=== PATIENT | male | born 1990 | race Caucasian/White ===

== ENCOUNTER 2016-11-01 15:36 | Emergency (ER) | payer MEDICAID ==
[2016-11-01 15:52] VITALS: BP 126/74
[2016-11-01] MEDS ORDERED: Aspirin Low Dose CHEW TAB* 81 MG PO ONE (16:34)
--- NOTE | 2016-11-01 17:04 | UC ---
Steven Sapp Benjamin, scribed for Beth Morgan MD on 11/01/16 at 1601 . Cardiac HPI - HPI Summary HPI Summary: 26yo male c/o SOB usually at night for a while. Today, pt started having sudden onset of mild aching chest pain around 1400 at rest. Pain is constant and it radiates to left neck and shoulder. Pt admits that CP and SOB are still present now rates it a 5. Pt reports having chest heaviness before without a dx. Pt denies wheezing in lungs, pain or swelling in legs, however, admits hx of frequent heart burn in past. States this does not feel like heart burn. Reports runny nose, but denies any other URI symptoms. Pt is a current smoker that admits is in the process of trying to quit. FHx includes OK, DM, and CVA. - History of Current Complaint Chief Complaint: UCChestPain Stated Complaint: CHEST PAIN, AND SHORTNESS OF BREATH Time Seen by Provider: 11/01/16 15:43 Hx Obtained From: Patient, Family/Molding Machine Operator - mother is with pt Onset/Duration: Sudden Onset - at rest, Lasting Hours, Still Present Timing: Constant Initial Severity: Mild Current Severity: Mild Pain Intensity: 5 Chest Pain Location: Mid Sternal Character: Dull/Aching - aching Aggravating: Nothing Alleviating: Nothing Associated Signs & Symptoms: Positive: Chest Pain, SOB. Negative: Fever, Diaphoresis, Cough, Calf Pain/Swelling - Risk Factors Pulmonary Embolism Risk Factors: Smoking Cardiac Risk Factors: Smoking, Family History TAD Risk Factors: Smoking AMI/ACS Risk Factors: Smoking - Allergy/Home Medications Allergies/Adverse Reactions: Allergies Allergy/AdvReac Type Severity Reaction Status Date / Time Penicillins Allergy Intermediate hives/rash Verified 11/01/16 15:47 Home Medications: Home Medications Ibuprofen TAB* [Motrin TAB* 600 MG] 500 mg PO Q8H PRN 11/01/16 [History Confirmed 11/01/16] PMH/Surg Hx/FS Hx/Imm Hx Previously Healthy: Yes GI/ History: Gastroesophageal Reflux - Surgical History Surgical History: None - Family History Known Family History: Positive: Cardiac Disease - [place], Hypertension, Diabetes, Other - CVA - Social History Occupation: Unemployed Lives: With Family - with mother Alcohol Use: None Substance Use Type: None Smoking Status (MU): Light Every Day Tobacco Smoker Type: Cigarettes Amount Used/How Often: 1 pack/ 3 days Review of Systems Constitutional: Negative Skin: Negative Eyes: Negative ENT: Nasal Discharge Respiratory: Shortness Of Breath Cardiovascular: Chest Pain - radiates to left shouler and neck Gastrointestinal: Negative Genitourinary: Negative Motor: Negative Neurovascular: Negative Musculoskeletal: Negative Neurological: Negative Psychological: Negative All Other Systems Reviewed And Are Negative: Yes Physical Exam Triage Information Reviewed: Yes Appearance: Well-Appearing, Well-Nourished, Pain Distress Vital Signs: Initial Vital Signs Temp 98.2 F 11/01/16 15:46 Pulse 64 11/01/16 15:46 Resp 16 11/01/16 15:46 BP 126/74 11/01/16 15:46 Pulse Ox 98 11/01/16 15:46 Vital Signs Reviewed: Yes Eyes: Positive: Conjunctiva Clear ENT: Positive: Normal ENT inspection, Pharynx normal, TMs normal. Negative: Muffled/hoarse voice Neck: Positive: Supple, Nontender, No Lymphadenopathy Respiratory: Positive: Lungs clear, Normal breath sounds, No respiratory distress. Negative: Wheezing Cardiovascular: Positive: RRR, No Murmur, Pulses Normal, Other: - CP is not reproducible. Abdomen Description: Positive: Nontender, No Organomegaly, Soft. Negative: Distended, Guarding, Hepatomegaly, McBurney's Point Tenderness, Peritoneal Signs , Pulsatile Mass, Splenomegaly Bowel Sounds: Positive: Present, Other: Musculoskeletal: Positive: Strength Intact, ROM Intact, Other: - no calf tenderness Neurological: Positive: Alert, Muscle Tone Normal Psychological Exam: Normal Psychological: Positive: Age Appropriate Behavior Skin Exam: Normal Diagnostics - EKG Cardiac Rate: NL - 70bpm Cardiac Rhythm: Sinus: Normal - EKG taken at 1536. Sinus Rhthym.Early repolarization, normal axis, normal IV conductions, short LA intervals 109. - Assessment/Plan Course Of Treatment: Pt with chest pain, SOB and abnormalities on EKG, smoker and family hx. No obvious etiology by hx or physical exam, since lungs are clear , pain is not reproducible, and pain does not feel like his GERD. Will have pt go to ED for further evaluation. Advised ambulance, pt declines, mother witnesses. Mother will drive pt by private car. ASA 324mg given. Allergies noted. - Differential Diagnoses - Chest Pain Differential Diagnosis/HQI/PQRI: Acute OK, Angina, Chest Wall, GI Disease, Lower Respiratory Infection, Pulmonary Embolism - Clinical Impression Provider Diagnoses: chest pain. dyspnea - Physician Notifications Discussed Patient Care With: Dr. Hobbs (Emergency Medicine) at 1630. Discharge - Discharge Plan Condition: Stable Disposition: AGAINST MEDICAL ADVICE Discharge Disposition Comment: pt going by private car with his mother driving to [facility] [place] Referrals: No Primary Care Phys,NOPCP [Primary Care Provider] - The documentation as recorded by the Steven katz Benjamin accurately reflects the service I personally performed and the decisions made by me, Beth Morgan MD.
== END 2016-11-01 16:40 | disposition left against medical advice (07) ==
LOC: UCEAST 15:36
DX: R07.89 Other chest pain (principal); R06.02 Shortness of breath; K21.9 Gastro-esophageal reflux disease without esophagitis; Z88.0 Allergy status to penicillin; F17.210 Nicotine dependence, cigarettes, uncomplicated
CPT/HCPCS: 93005; 99212; A9270-GY; G0463

== ENCOUNTER 2016-11-01 17:24 | Emergency (ER) | payer MEDICAID ==
[2016-11-01 17:46] VITALS: BP 123/73
[2016-11-01 18:10] LABS: Hematocrit 47 % (42-52); Hemoglobin 15.6 g/dl (14.0-18.0); Mean Corpuscular HGB Conc 33 g/dl (31-36); Mean Corpuscular Hemoglobin 29 pg (27-31); Mean Corpuscular Volume 86 fL (80-94); Mean Platelet Volume 9 um3 (7.4-10.4); Red Blood Count 5.44 10^6/ul (4.0-5.4); Red Cell Distribution Width 14 % (10.5-15); White Blood Count 9.9 10^3/ul (3.5-10.8)
--- NOTE | 2016-11-01 18:11 | RAD ---
INDICATION: Shortness of breath. COMPARISON: None TECHNIQUE: PA and lateral views of the chest were obtained. FINDINGS: The heart and mediastinum are normal in size and contour. The lungs are grossly clear. There is no evidence of large pleural effusion. Visualized bones are normal for the patient's age. There is no radiographic evidence of free air beneath the diaphragm IMPRESSION: No radiographic evidence of acute cardiopulmonary disease.
[2016-11-01 18:26] LABS: Albumin 4.6 g/dL (3.2-5.2); BUN/Creatinine Ratio 18.3 (8-20); Calcium 9.4 mg/dL (8.6-10.3); EGFR African American 144.9 (>60); EGFR Non-African American 112.7 (>60); Globulin 3.2 g/dL (2-4); Potassium 3.7 mmol/L (3.5-5.0); Total Bilirubin 0.8 mg/dL (0.2-1.0); Total Protein 7.8 g/dL (6.4-8.9)
[2016-11-01] MEDS ORDERED: Ketorolac INJ* 30 MG/ML 1 ML VIAL IM ONE (18:26)
[2016-11-01 18:58] LABS: C Reactive Protein 1.04 mg/L (< 5.00)
--- NOTE | 2016-11-01 19:00 | ED ---
Rico Sapp SooYoung, scribed for Moreno Hobbs MD on 11/01/16 at 1752 . HPI Chest Pain - HPI Summary HPI Summary: A 26 y/o M sent from [facility] [place] to ED with c/o mid-sternal CP onset approx 1430. Pt was at rest, sitting as passenger in a car when he began developing a constant CP described as an ache and rated as a 5 out of 10 pain. Pain is still present in ED. Associated sx: SOB. Denies wheezing, n/v, cough, lightheadedness. Deep breaths does not aggravate the pain. Pert FHx: grandfather had [place] at 49. Denies PMHx, does not take daily medication. Pt is a smoker, but does not drink or use recreational drugs. - History of Current Complaint Chief Complaint: EDChestPainROMI Time Seen by Provider: 11/01/16 17:41 Hx Obtained From: Patient, Family/Director Of Music Therapy - mother present Onset/Duration: Started Hours Ago, Still Present Time of Onset: 14:30 Timing: Constant Initial Severity: Moderate Current Severity: Moderate Pain Intensity: 5 Pain Scale Used: 0-10 Numeric Chest Pain Location: Mid Sternal Character: Dull/Aching Associated Signs and Symptoms: Positive: Shortness of Breath. Negative: Lightheadedness, Nausea, Cough, Vomiting, Wheezing - Allergy/Home Medications Allergies/Adverse Reactions: Allergies Allergy/AdvReac Type Severity Reaction Status Date / Time Penicillins Allergy Intermediate hives/rash Verified 11/01/16 15:47 PMH/Surg Hx/FS Hx/Imm Hx Previously Healthy: Yes Sensory History: Denies: Hx Legally Blind Infectious Disease History: No Infectious Disease History: Denies: Traveled Outside the [place] in Last 30 Days - Family History Known Family History: Positive: Cardiac Disease - [place], grandfather [place] at 29, Hypertension, Diabetes, Other - CVA - Social History Occupation: Unemployed Lives: With Family Alcohol Use: None Hx Substance Use: No Substance Use Type: Reports: None Hx Tobacco Use: Yes Smoking Status (MU): Light Every Day Tobacco Smoker Type: Cigarettes Amount Used/How Often: 1 pack/ 3 days Review of Systems Positive: Chest Pain Positive: Shortness Of Breath, Other - neg: wheezing. Negative: Cough Negative: Vomiting, Nausea Neurological: Other - neg: lightheadedness All Other Systems Reviewed And Are Negative: Yes Physical Exam - Summary Physical Exam Summary: VITAL SIGNS: Reviewed. GENERAL: Patient is a well-developed and nourished MALE who is lying comfortable in the stretcher. Patient is not in any acute respiratory distress. HEAD AND FACE: No signs of trauma. No ecchymosis, hematomas or skull depressions. No sinus tenderness. EYES: PERRLA, EOMI x 2, No injected conjunctiva, no nystagmus. EARS: Hearing grossly intact. Ear canals and tympanic membranes are within normal limits. MOUTH: Oropharynx within normal limits. NECK: Supple, trachea is midline, no adenopathy, no JVD, no carotid bruit, no c- spine tenderness, neck with full ROM. CHEST: Symmetric, no tenderness at palpation LUNGS: Clear to auscultation bilaterally. No wheezing or crackles. CVS: Regular rate and rhythm, S1 and S2 present, no murmurs or gallops appreciated. ABDOMEN: Soft, non-tender. No signs of distention. No rebound, no guarding, and no masses palpated. Bowel sounds are normal. EXTREMITIES: FROM in all major joints, no edema, no cyanosis or clubbing. NEURO: Alert and oriented x 3. No acute neurological deficits. Speech is normal and follows commands. SKIN: Dry and warm Triage Information Reviewed: Yes Vital Signs On Initial Exam: Initial Vitals Temp Pulse Resp BP Pulse Ox 98.0 F 87 16 140/70 100 11/01/16 17:27 11/01/16 17:27 11/01/16 17:27 11/01/16 17:27 11/01/16 17:27 Vital Signs Reviewed: Yes - Nay Coma Scale Coma Scale Total: 15 Diagnostics - Vital Signs Vital Signs Temp Pulse Resp BP Pulse Ox 11/01/16 17:40 75 17 97 11/01/16 17:39 123/73 11/01/16 17:27 98.0 F 80 16 140/70 100 - Laboratory Lab Results: Lab Results 11/01/16 11/01/16 11/01/16 Range/Units 17:54 17:54 17:54 WBC 9.9 (3.5-10.8) 10^3/ul RBC 5.44 H (4.0-5.4) 10^6/ul Hgb 15.6 (14.0-18.0) g/dl Hct 47 (42-52) % MCV 86 (80-94) fL MCH 29 (27-31) pg MCHC 33 (31-36) g/dl RDW 14 (10.5-15) % Plt Count 257 (150-450) 10^3/ul MPV 9 (7.4-10.4) um3 Neut % (Auto) 56.4 (38-83) % Lymph % (Auto) 33.2 (25-47) % [place] % (Auto) 6.1 (1-9) % Eos % (Auto) 3.9 (0-6) % Baso % (Auto) 0.4 (0-2) % Absolute Neuts (auto) 5.6 (1.5-7.7) 10^3/ul Absolute Lymphs (auto) 3.3 (1.0-4.8) 10^3/ul Absolute Monos (auto) 0.6 (0-0.8) 10^3/ul Absolute Eos (auto) 0.4 (0-0.6) 10^3/ul Absolute Basos (auto) 0 (0-0.2) 10^3/ul Absolute Nucleated RBC 0.01 10^3/ul Nucleated RBC % 0.1 D-Dimer, Quantitative < 200 (Less Than 230) ng/mL Sodium 136 (133-145) mmol/L Potassium 3.7 (3.5-5.0) mmol/L Chloride 103 (101-111) mmol/L Carbon Dioxide 26 (22-32) mmol/L Anion Gap 7 (2-11) mmol/L BUN 15 (6-24) mg/dL Creatinine 0.82 (0.67-1.17) mg/dL Est GFR ( Amer) 144.9 (>60) Est GFR (Non-Af Amer) 112.7 (>60) BUN/Creatinine Ratio 18.3 (8-20) Glucose 109 H (70-100) mg/dL Lactic Acid (0.5-2.0) mmol/L Calcium 9.4 (8.6-10.3) mg/dL Total Bilirubin 0.80 (0.2-1.0) mg/dL AST 15 (13-39) U/L ALT 14 (7-52) U/L Alkaline Phosphatase 78 (34-104) U/L Total Creatine Kinase 89 (10-223) U/L CK-MB (CK-2) 1.3 (0.6-6.3) ng/mL Troponin I 0.00 (<0.04) ng/mL B-Natriuretic Peptide ( - 100) pg/mL Total Protein 7.8 (6.4-8.9) g/dL Albumin 4.6 (3.2-5.2) g/dL Globulin 3.2 (2-4) g/dL Albumin/Globulin Ratio 1.4 (1-3) TSH Pending Thyroxine (T4) Pending 11/01/16 11/01/16 Range/Units 17:54 17:54 WBC (3.5-10.8) 10^3/ul RBC (4.0-5.4) 10^6/ul Hgb (14.0-18.0) g/dl Hct (42-52) % MCV (80-94) fL MCH (27-31) pg MCHC (31-36) g/dl RDW (10.5-15) % Plt Count (150-450) 10^3/ul MPV (7.4-10.4) um3 Neut % (Auto) (38-83) % Lymph % (Auto) (25-47) % [place] % (Auto) (1-9) % Eos % (Auto) (0-6) % Baso % (Auto) (0-2) % Absolute Neuts (auto) (1.5-7.7) 10^3/ul Absolute Lymphs (auto) (1.0-4.8) 10^3/ul Absolute Monos (auto) (0-0.8) 10^3/ul Absolute Eos (auto) (0-0.6) 10^3/ul Absolute Basos (auto) (0-0.2) 10^3/ul Absolute Nucleated RBC 10^3/ul Nucleated RBC % D-Dimer, Quantitative (Less Than 230) ng/mL Sodium (133-145) mmol/L Potassium (3.5-5.0) mmol/L Chloride (101-111) mmol/L Carbon Dioxide (22-32) mmol/L Anion Gap (2-11) mmol/L BUN (6-24) mg/dL Creatinine (0.67-1.17) mg/dL Est GFR ( Amer) (>60) Est GFR (Non-Af Amer) (>60) BUN/Creatinine Ratio (8-20) Glucose (70-100) mg/dL Lactic Acid 1.0 (0.5-2.0) mmol/L Calcium (8.6-10.3) mg/dL Total Bilirubin (0.2-1.0) mg/dL AST (13-39) U/L ALT (7-52) U/L Alkaline Phosphatase (34-104) U/L Total Creatine Kinase (10-223) U/L CK-MB (CK-2) (0.6-6.3) ng/mL Troponin I (<0.04) ng/mL B-Natriuretic Peptide 19 ( - 100) pg/mL Total Protein (6.4-8.9) g/dL Albumin (3.2-5.2) g/dL Globulin (2-4) g/dL Albumin/Globulin Ratio (1-3) TSH Thyroxine (T4) Result Diagrams: 11/01/16 17:54 11/01/16 17:54 Lab Statement: Any lab studies that have been ordered have been reviewed, and results considered in the medical decision making process. - Radiology CXR Xray Interpretation: No Acute Changes - IMPRESSION: No radiographic evidence of acute cardiopulmonary dz Radiology Interpretation Completed By: Radiologist - EKG 1 EKG Rhythm: Sinus Rhythm - 69 bpm EKG Interpretation: early repolarization in V2-V5 Chest Pain Course/Dx - Course Assessment/Plan: A 26 y/o M sent from [facility] presents to ED with c/o mid-sternal CP onset approx 1430. Pt was at rest, sitting as passenger in a car when he began developing a constant CP described as an ache and rated as a 5 out of 10 pain. Pain is still present in ED. Associated sx: SOB. Denies wheezing, n/v, cough, lightheadedness. Deep breaths does not aggravate the pain. Pert FHx: grandfather had [place] at 49. Denies PMHx, does not take daily medication. Pt is a smoker, but does not drink or use recreational drugs. In the ED course an IV access was obtained. Patient was placed in a court monitor. Patient was started with IV fluids. He was given Toradol for the CP. Labs within normal limits except for Glucose of 109. Troponin #1: O.00 D dimer is <200 therefore no suspicion for PE. Patient has no comorbidities and troponin is negative, EKG no ST elevation and CP resolved with Toradol therefore I do not believe he is at risk of ACS. EKG shows a NSR at 69 BPM w/o ST elevations. He has early repolarization in the anterior leads. CXR impression: No acute pathology. Hx of IL is his family but at 49 years old. Patient reports that all symptoms have resolved. Because the patient has no significant comorbidities and no family history of cardiovascular disease at his age the patient will be discharged home with follow up of PMD. I discussed all the findings and test results with the patient. Patient was instructed to return to the emergency room immediately if any of the symptoms return or worsens. Patient understands and agrees. Plan of care was discussed with the patient and patient understands and agrees. All questions were answered at patient satisfaction. There were no further complaints or concerns. PE before discharge: CVS: S1 and S2 present. No murmurs appreciated. Abdominal exam before discharge: Soft, non- tender. No signs of distention. No rebound no guarding, and no masses palpated. Bowel sounds are normal. Patient is alert and oriented x 3. Patient is hemodynamically stable. - Chest Pain Differential Diagnosis/HQI/PQRI: Angina, Chest Wall, GI Disease, Lower Respiratory Infection, Pulmonary Edema, Pulmonary Embolism - Diagnoses Provider Diagnoses: Atypical chest pain Discharge - Discharge Plan Condition: Stable Disposition: HOME Patient Education Materials: Chest Pain (ED) Referrals: [facility] PHYSICIAN REFERRAL [Outside] No Primary Care Phys,NOPCP [Primary Care Provider] - Additional Instructions: Please return to ED if you experience new or worsening symptoms. The documentation as recorded by the Rico katz SooYoung accurately reflects the service I personally performed and the decisions made by me, Moreno Hobbs MD.
[2016-11-01 19:18] LABS: T4 8.13 mcg/mL (6.09-12.23)
[2016-11-01 19:20] LABS: TSH (Thyroid Stimulating Horm) 1.56 mcIU/mL (0.34-5.60)
[2016-11-01 19:33] LABS: Erythrocyte Sed Rate 6 mm/Hr (0-14)
== END 2016-11-01 19:08 | disposition home or self-care (01) ==
LOC: ED 17:24
DX: R07.89 Other chest pain (principal); R06.02 Shortness of breath; Z88.0 Allergy status to penicillin; F17.210 Nicotine dependence, cigarettes, uncomplicated
CPT/HCPCS: 36415; 71020; 80053; 82550; 82553; 83605; 83880; 84436; 84443; 84484; 85025; 85379; 85652; 86140; 93005; 99283

== ENCOUNTER 2018-12-28 13:03 | Emergency (ER) | payer MEDICAID ==
[2018-12-28 13:11] VITALS: BP 102/65
--- NOTE | 2018-12-28 13:29 | UC ---
Lower Extremity/Ankle HPI - HPI Summary HPI Summary: 28 yo male had a go kart dropped on left lower ext hit anterior ankle/dorsum of midfoot - History of Current Complaint Chief Complaint: UCLowerExtremity Stated Complaint: FOOT INJURY Time Seen by Provider: 12/28/18 13:04 Hx Obtained From: Patient Onset/Duration: Sudden Onset Severity Initially: Moderate Severity Currently: Moderate Pain Intensity: 5 Pain Scale Used: 0-10 Numeric Aggravating Factor(s): Standing, Ambulation Able to Bear Weight: Yes Feet (Multiple View): 1 - tedner /swollen - Allergies/Home Medications Allergies/Adverse Reactions: Allergies Allergy/AdvReac Type Severity Reaction Status Date / Time Penicillins Allergy Hives Verified 12/28/18 13:04 Home Medications: Home Medications NK [No Home Medications Reported] 12/28/18 [History Confirmed 12/28/18] PMH/Surg Hx/FS Hx/Imm Hx - Additional Past Medical History Additional PMH: Stargardt disease Previously Healthy: Yes - Surgical History Surgical History: None - Family History Known Family History: Positive: Cardiac Disease - [place], grandfather [place] at 29, Hypertension, Diabetes, Other - CVA - Social History Alcohol Use: None Substance Use Type: None Smoking Status (MU): Light Every Day Tobacco Smoker Type: Cigarettes Amount Used/How Often: 1 pack/ 3 days Review of Systems All Other Systems Reviewed And Are Negative: Yes Constitutional: Positive: Negative Skin: Positive: Negative Eyes: Positive: Negative ENT: Positive: Negative Respiratory: Positive: Negative Cardiovascular: Positive: Negative Gastrointestinal: Positive: Negative Genitourinary: Positive: Negative Motor: Positive: Negative Neurovascular: Positive: Negative Musculoskeletal: Positive: Edema Neurological: Positive: Negative Psychological: Positive: Negative Physical Exam Triage Information Reviewed: Yes Appearance: Well-Appearing, No Pain Distress, Well-Nourished Vital Signs: Initial Vital Signs Temp 98.8 F 12/28/18 13:08 Pulse 83 12/28/18 13:08 Resp 17 12/28/18 13:08 BP 102/65 12/28/18 13:08 Pulse Ox 100 12/28/18 13:08 Eye Exam: Normal Eyes: Positive: Conjunctiva Clear ENT: Positive: Hearing grossly normal. Negative: Nasal congestion, Nasal drainage, Tonsillar swelling, Tonsillar exudate, Trismus, Muffled voice, Hoarse voice Neck: Positive: Supple, Nontender, No Lymphadenopathy Respiratory: Positive: Lungs clear, Normal breath sounds, No respiratory distress, No accessory muscle use Cardiovascular: Positive: RRR, No Murmur Musculoskeletal: Positive: ROM Intact, No Edema Neurological: Positive: Alert Psychological Exam: Normal Skin Exam: Normal Diagnostics - Radiology No standard instances Radiology Interpretation Completed By: Radiologist Summary of Radiographic Findings: no fx Lower Extremity Course/Dx - Differential Dx/Diagnosis Provider Diagnosis: Contusion of left foot Discharge - Sign-Out/Discharge Documenting (check all that apply): Patient Departure All imaging exams completed and their final reports reviewed: Yes - Discharge Plan Condition: Stable Disposition: HOME Patient Education Materials: Contusion in Adults (ED) Referrals: No Primary Care Phys,NOPCP [Primary Care Provider] - Additional Instructions: rest elevate ice advil or aleve recheck in 2 weeks if not better - Billing Disposition and Condition Condition: STABLE Disposition: Home
== END 2018-12-28 14:16 | disposition home or self-care (01) ==
LOC: UCEAST 13:03
DX: S90.32XA Contusion of left foot, initial encounter (principal); W22.8XXA Striking against or struck by other objects, initial encounter; Y92.9 Unspecified place or not applicable; Z88.0 Allergy status to penicillin
CPT/HCPCS: 99211; G0463

== ENCOUNTER 2019-07-21 15:29 | Emergency (ER) | payer MEDICAID, OTHER ==
--- OUTSIDE RECORDS SUMMARY | 2019-07-21 15:36 | XMS REPORT ---
:1990 Author Organization [facility] Care Team Providers Name Role Phone Judith Kumari Primary Care Physician Unavailable Allergies, Adverse Reactions, Alerts Allergy Code CodeSystem Reaction Severity Criticality Status Start Substance Date Moderate Medications Medication Medication Medication Start Stop Route Dose Status Fill Code CodeSystem Date Date Instructions RxNorm Relevant diagnostic tests/laboratory data Narrative No Information Procedures Procedure Code CodeSystem Target Date of Status Service Device Device Device Name Site Procedure Delivery Code Name UID Location Group [id number] SNOMED-CT () 2018-09-30 complete Mental psychotherap [facility] (other [place] than of a [address]) [place], [place], [id number] Group [id number] SNOMED-CT () 2018-10-07 complete Mental psychotherap [facility] (other [place] than of a [address] group) [place], [place], [id number] Group [id number] SNOMED-CT () 2018-09-16 complete Mental psychotherap [facility] (other [place] than of a [address] group) [place], [place], [id number] Group [id number] SNOMED-CT () 2018-10-28 complete Mental psychotherap [facility] (other [place] than of a [address] group) [place], [place], [id number] Group [id number] SNOMED-CT () 2018-11-04 complete Mental psychotherap [facility] (other [place] than of a [address] group) [place], [place], [id number] Group [id number] SNOMED-CT () 2018-11-11 complete Mental psychotherap [facility] (other [place] than of a [address] group) [place], [place], [id number] Group [id number] SNOMED-CT () 2018-09-23 complete Mental psychotherap [facility] (other [place] than of a [address] group) [place], [place], [id number] Group [id number] SNOMED-CT () 2019-01-13 complete Mental psychotherap [facility] (other [place] [facility] of a [address] group) [place], [place], [id number] Group [id number] SNOMED-CT () 2019-04-14 complete Mental psychotherap [facility] (other [place] than of a [address] group) [place], [place], [id number] Group [id number] SNOMED-CT () 2019-05-05 complete Mental psychotherap [facility] (other [place] than of a [address] group) [place], [place], [id number] Group [id number] SNOMED-CT () 2019-06-02 complete Mental psychotherap [facility] y (other [place] than of a [address] group) [place], [place], [id number] Group [id number] SNOMED-CT () 2018-09-02 complete Mental psychotherap [facility] (other [place] than of a [address] group) [place], [place], [id number] Group [id number] SNOMED-CT () 2018-09-09 complete Mental psychotherap [facility] (other [place] [facility] of a [address] group) [place], [place], [id number] Group [id number] SNOMED-CT () 2018-11-18 complete Mental psychotherap [facility] (other [place] than of a [address]) [place], [place], [id number] Group [id number] SNOMED-CT () 2018-11-25 complete Mental psychotherap [facility] (other [place] [facility] of a [address] group) [place], [place], [id number] Group [id number] SNOMED-CT () 2018-12-16 complete Mental psychotherap [facility] y (other [place] than of a [address] group) [place], [place], [id number] Group [id number] SNOMED-CT () 2018-12-23 complete Mental psychotherap [facility] y (other [place] [facility] of a [address] group) [place], [place], [id number] Group [id number] SNOMED-CT () 2018-12-30 complete Mental psychotherap [facility] (other [place] [facility] of a [address] group) [place], [place], [id number] Group [id number] SNOMED-CT () 2019-01-06 complete Mental psychotherap [facility]- [facility] (other [place] [facility] of a [address] group) [place], [place], [id number] SNOMED-CT () 2018-09-26 complete Mental d [facility]- [address], [id number] Encounters/Encounter Diagnoses Encounter Name Encounter Diagnosis Diagnosis Diagnosis Date of Service Code Code Name CodeSystem Diagnosis Delivery Location Psychotherapy - 00169 SNOMED-CT 2019-06-02 [facility] [address] [place] [address], [id number] Vital Signs No Information Social History Element Description Description Start End Code CodeSystem AdditionalInfo Date Date SexAssignedAtBirth Male 1990-0 M AdministrativeGender 3 Hospital Discharge Instructions Reason For Referral Medical Equipment FDA Assessments
--- OUTSIDE RECORDS SUMMARY | 2019-07-21 15:36 | XMS REPORT ---
:1990 Author Organization [facility] Care Team Providers Name Role Phone Judith [...] Procedure Delivery Code Name UID Location Group [id number] SNOMED-CT () 2018-09-30 complete Mental psychotherap [facility]- [facility] (other [place] [facility] of a [address]) [place], [place], [id number] Group [id number] SNOMED-CT () 2018-10-07 complete Mental psychotherap 8 [facility]- y (other [place] [facility] a [address] group) [place], [place], [id number] Group [id number] SNOMED-CT () 2018-09-16 complete Mental psychotherap 8 [facility]- y (other [place] [facility] a [address] group) [place], [place], [id number] Group [id number] SNOMED-CT () 2018-10-28 complete Mental psychotherap 8 [facility]- y (other [place] [facility] a [address] group) [place], [place], [id number] Group [id number] SNOMED-CT () 2018-11-04 complete Mental psychotherap 8 [facility]- y (other [place] [facility] a [address]) [place], [place], [id number] Group [id number] SNOMED-CT () 2018-11-11 complete Mental psychotherap 8 [facility]- y (other [place] [facility] a [address]) [place], [place], [id number] Group [id number] SNOMED-CT () 2018-09-09 complete Mental psychotherap 8 [facility]- y (other [place] [facility] a [address] group) [place], [place], [id number] Group [id number] SNOMED-CT () 2018-09-23 complete Mental psychotherap 8 [facility]- y (other [place] [facility] a [address] [facility]) [place], [place], [id number] Group [id number] SNOMED-CT () 2019-01-13 complete Mental psychotherap 8 [facility]- y (other [place] [facility] a [address] group) [place], [place], [id number] Group [id number] SNOMED-CT () 2019-04-14 complete Mental psychotherap 8 [facility]- y (other [place] [facility] a [address] group) [place], [place], [id number] Group [id number] SNOMED-CT () 2019-05-05 complete Mental psychotherap 8 [facility]- y (other [place] [facility] a [address]) [place], [place], [id number] Group [id number] SNOMED-CT () 2019-06-02 complete Mental psychotherap 8 [facility]- y (other [place] [facility] a [address] group) [place], [place], [id number] Group [id number] SNOMED-CT () 2019-06-09 complete Mental psychotherap 8 [facility]- y (other [place] [facility] a [address] group) [place], [place], [id number] Group [id number] SNOMED-CT () 2018-09-02 complete Mental psychotherap 8 [facility]- y (other [place] [facility] a [address] group) [place], [place], [id number] Group [id number] SNOMED-CT () 2018-11-18 complete Mental psychotherap 8 [facility]- y (other [place] [facility] a [address] group) [place], [place], [id number] Group [id number] SNOMED-CT () 2018-11-25 complete Mental psychotherap 8 [facility]- y (other [place] [facility] a [address]) [place], [place], [id number] Group [id number] SNOMED-CT () 2018-12-16 complete Mental psychotherap 8 [facility]- y (other [place] [facility] a [address] group) [place], [id number] Group [id number] SNOMED-CT () 2018-12-23 complete Mental psychotherap 8 [facility]- y (other [place] [facility] a [address]) [place], [place], [id number] Group [id number] SNOMED-CT () 2018-12-30 complete Mental psychotherap 8 [facility]- y (other [place] [facility] a [address]) [place], [place], [id number] Group [id number] SNOMED-CT () 2019-01-06 complete Mental psychotherap 8 [facility]- y (other [place] [facility] a [address]) [place], [place], [id number] SNOMED-CT () 2018-09-26 complete Mental d [facility]- [facility] [address], [id number] Encounters/Encounter Diagnoses Encounter Name Encounter Diagnosis Diagnosis Diagnosis Date of Service Code Code Name CodeSystem Diagnosis Delivery Location Psychotherapy - 76374 SNOMED-CT 2019-06-09 [facility] [address] [place] [address], [phone] Vital Signs No Information Social History Element Description Description Start End Code CodeSystem AdditionalInfo Date Date SexAssignedAtBirth Male M AdministrativeGender 08-20 Hospital Discharge Instructions Reason For Referral Medical Equipment FDA Assessments
[2019-07-21 15:40] VITALS: BP 137/82
--- NOTE | 2019-07-21 15:51 | UC ---
Skin Complaint HPI - HPI Summary HPI Summary: 28 yo male presents with penile lesion. He tells me that about a week ago he noticed a small bump on the underside of his penis that was mildly red and tender. Since that time has gotten larger. He states that he shaves his pubic hair and gets infected hairs from time to time, but has never had anything last this long. He has been with the same partner for the last 4 years and feels that she has been equally as monogamous. He denies concern for STD today. He is not having any penile drainage, testicular pain, dysuria, suprapubic pain. Denies fever, chills, weight gain/loss, night sweats. Did not get the gardasil vaccinations. - History of Current Complaint Chief Complaint: [facility] Time Seen by Provider: 07/21/19 15:51 Stated Complaint: PERSONAL Hx Obtained From: Patient Onset/Duration: Gradual Onset Onset Severity: Mild Current Severity: Mild Pain Intensity: 2 Pain Scale Used: 0-10 Numeric - Allergy/Home Medications Allergies/Adverse Reactions: Allergies Allergy/AdvReac Type Severity Reaction Status Date / Time Penicillins Allergy Hives Verified 07/21/19 15:41 Home Medications: Home Medications Cephalexin CAP* [Keflex CAP*] 500 mg PO TID #21 cap 07/21/19 [Rx] PMH/Surg Hx/FS Hx/Imm Hx - Additional Past Medical History Additional PMH: None - Surgical History Surgical History: None - Family History Known Family History: Positive: Cardiac Disease - CT, grandfather CT at 29, Hypertension, Diabetes, Other - CVA - Social History Lives: With Family Alcohol Use: None Substance Use Type: None Smoking Status (MU): Light Every Day Tobacco Smoker Type: Cigarettes Amount Used/How Often: 1 pack/ 3 days Review of Systems All Other Systems Reviewed And Are Negative: No Constitutional: Positive: Negative Skin: Positive: Other - Penile lesion Respiratory: Positive: Negative Cardiovascular: Positive: Negative Gastrointestinal: Positive: Negative Genitourinary: Positive: Negative Neurological/Mental Status: Positive: Negative Psychological: Positive: Negative Physical Exam - Summary Physical Exam Summary: GENERAL: NAD. WDWN. No pain distress. SKIN: PENIS: Underside of penis near base with 1.0cm vertical linear by 3mm mild erythema and tenderness and induration. No drainage, streaking, ulceration. NECK: Supple. Nontender. No lymphadenopathy. CHEST: No accessory muscle use. Breathing comfortably and in no distress. CV: Pulses intact. Cap refill <2seconds NEURO: Alert. PSYCH: Age appropriate behavior. Triage Information Reviewed: Yes Vital Signs: Initial Vital Signs Temp 98.4 F 07/21/19 15:37 Pulse 80 07/21/19 15:37 Resp 18 07/21/19 15:37 BP 137/82 07/21/19 15:37 Pulse Ox 99 07/21/19 15:37 Vital Signs Reviewed: Yes Male Genital Exam: Negative: Inguinal Tenderness, Scrotum Tenderness (R), Scrotum Tenderness (L), Testicular Tenderness (R), Testicular Tenderness (L), Urethral Discharge Course/Dx - Course Course Of Treatment: Lesion seems most consistent with abscess likely from ingrown hair due to shaving. Pt is concerned about HPV today -- this does not seem to be HPV, but will refer him to Urology if anbx do not improve the suspected abscess. Lesion does not appear concerning for STD or communicable disease today. - Diagnoses Provider Diagnosis: Abscess Discharge ED - Sign-Out/Discharge Documenting (check all that apply): Patient Departure All imaging exams completed and their final reports reviewed: No Studies - Discharge Plan Condition: Stable Disposition: HOME Prescriptions: Cephalexin CAP* [Keflex CAP*] 500 mg PO TID #21 cap Patient Education Materials: Abscess (ED) Referrals: No Primary Care Phys,NOPCP [Primary Care Provider] - Estrada Moseley MD [Medical Doctor] - If Needed Additional Instructions: The area of concern seems most consistent with an ingrown hair or abscess just under the skin. Take the antibiotics as prescribed. If the area does not improve or gets worse - please call Urology at the number below to schedule an appointment for a recheck - Billing Disposition and Condition Condition: STABLE Disposition: Home
== END 2019-07-21 16:11 | disposition home or self-care (01) ==
LOC: UCEAST 15:29
DX: N48.21 Abscess of corpus cavernosum and penis (principal); F17.210 Nicotine dependence, cigarettes, uncomplicated; Z88.0 Allergy status to penicillin
CPT/HCPCS: 99212; G0463